=== PATIENT | male | born 2000 | race Caucasian/White ===

== ENCOUNTER 2024-03-20 18:18 | Observation (INO) | payer SELFPAY ==
[2024-03-20 18:55] VITALS: BMI 24.4
[2024-03-20] MEDS ORDERED: Acetaminophen 650 MG Suppository PR PRN (22:17)
[2024-03-20] MEDS ORDERED: Calcium Carbonate 500 MG ChewTAB PO PRN (22:17)
[2024-03-20] MEDS ORDERED: Ondansetron ODT 4 MG TAB PO PRN (22:17)
[2024-03-20] MEDS ORDERED: Ondansetron PF 4 MG/2 ML Vial IVP PRN (22:17)
[2024-03-20 23:13] LABS: #Basophils 0.06 10x3/uL (0.0-0.2); %Basophils 0.7 % (0.0-1.0); %Eosinophils 1.1 % (0.0-10.0); %Monocytes 7.1 % (0.0-10.0); Hematocrit 43.6 % (42.0-52.0); Hemoglobin 14.9 g/dL (14.0-18.0); Mean Corpuscular HGB CONC 34.2 g/dL (32.0-36.0); Mean Corpuscular Hemoglobin 30.1 pg (27.0-31.0); Mean Corpuscular Volume 88.1 fL (78.0-98.0); Mean Platelet Volume 8.5 fL (7.4-10.4); Platelet Count 316 10x3/uL (130-400); RBC Distribution Width 12.1 % (11.5-14.5); Red Blood Cell (RBC) Count 4.95 mill/uL (4.70-6.10)
[2024-03-20 23:32] LABS: ALT (SGPT) 8 U/L (8-55); AST (SGOT) 14 U/L (5-34); Alkaline Phosphatase 45 U/L (40-110); Anion Gap 12 mmol/L (10-20); BUN (Urea Nitrogen) 11 mg/dL (8.9-20.6); Bilirubin, Total 0.5 mg/dL (0.2-1.2); Calc. Creatinine Clearance 154 mL/min (70-130); Calcium 9.4 mg/dL (7.8-10.44); Carbon Dioxide 27 mmol/L (22-29); Chloride 107 mmol/L (98-107); Estimated GFR 125; Globulin 3.1 g/dL (2.4-3.5); Glucose 95 mg/dL (70-105); Protein, Total 7.1 g/dL (6.0-8.3); Sodium 142 mmol/L (136-145)
[2024-03-21] MEDS: Acetaminophen 325 MG TAB PO SCH (00:22)
[2024-03-21 03:17] LABS: Troponin I Less than 0.010 ng/mL (< 0.028)
[2024-03-21] MEDS: Famotidine 20 MG TAB PO SCH (08:12)
[2024-03-21] MEDS: Famotidine/PF 20 mg/2ml Vial SLOW IVP SCH (08:12)
[2024-03-21] MEDS: levETIRAcetam 500 MG TAB PO SCH (12:27)
[2024-03-21 15:53] VITALS: BP 133/60; TEMP 98.4
[2024-03-21] MEDS ORDERED: levETIRAcetam 500 MG TAB PO SCH (21:00)
[2024-03-22] MEDS ORDERED: FLU (Fluarix Triv) TS24-25(6MOS UP)/PF 45 MCG/0.5 ML Syringe IM ONE (09:00)
== END 2024-03-21 16:52 | disposition home or self-care (01) ==
LOC: OBS 18:18
PROVIDERS: ADMIT Student in an Organized Health Care Education/Training Program; ATTEND Hospitalist
DX: R07.89 Other chest pain (principal); R79.89 Other specified abnormal findings of blood chemistry; R56.9 Unspecified convulsions; Z91.013 Allergy to seafood; Z98.890 Other specified postprocedural states; Z79.899 Other long term (current) drug therapy
CPT/HCPCS: 36415; 70551; 80053; 84484; 85025; G0378